=== PATIENT | female | born 1935 | race Caucasian/White ===

== ENCOUNTER 2017-04-05 22:46 | Observation (INO) | payer MEDICARE, BC ==
[2017-04-06 03:19] LABS: Hematocrit 44 % (35-47); Hemoglobin 14.6 g/dl (12.0-16.0); Mean Corpuscular HGB Conc 34 g/dl (31-36); Mean Corpuscular Hemoglobin 31 pg (27-31); Mean Corpuscular Volume 92 fL (80-97); Mean Platelet Volume 10 um3 (7.4-10.4); Red Blood Count 4.73 10^6/ul (4.0-5.4); Red Cell Distribution Width 14 % (10.5-15); White Blood Count 15.1 10^3/ul (3.5-10.8)
[2017-04-06 03:30] LABS: BUN/Creatinine Ratio 28.6 (8-20); Calcium 9.3 mg/dL (8.6-10.3); EGFR African American 83.5 (>60); EGFR Non-African American 64.9 (>60); Globulin 3.2 g/dL (2-4); Potassium 3.9 mmol/L (3.5-5.0); Total Bilirubin 0.7 mg/dL (0.2-1.0); Total Protein 7.2 g/dL (6.4-8.9)
[2017-04-06] MEDS ORDERED: Iodixanol* (CONTRAST) 320 MG/ML 100 ML SDV IV ONE (03:44)
[2017-04-06] MEDS ORDERED: Insulin ASPART (NF) 1 UNIT SUBCUT ONE (05:57)
[2017-04-06] MEDS ORDERED: Insulin LISPRO* 1 UNITS UNIT SUBCUT ONE (06:23)
[2017-04-06] MEDS ORDERED: Dextrose 50% Syringe 50 ML* 25 GM/50 ML SYRINGE IV PUSH PRN ×2 (06:23→08:41)
--- NOTE | 2017-04-06 07:57 | RAD ---
HISTORY: Trauma, left eye injury, trauma COMPARISONS: September 23, 2015 TECHNIQUE: Multiple contiguous axial CT scans were obtained of the head without intravenous contrast. FINDINGS: HEMORRHAGE/INFARCT: There is no hemorrhage or acute infarct. MASSES/SHIFT: There is no mass or shift. EXTRA-AXIAL SPACES: There are no extra-axial fluid collections. SULCI AND VENTRICLES: The sulci and ventricles are normal in size and position for the patient's stated age. CEREBRUM: There are no focal parenchymal abnormalities. BRAINSTEM: There are no focal parenchymal abnormalities. CEREBELLUM: There are no focal parenchymal abnormalities. VESSELS: The vessels are grossly normal. PARANASAL SINUSES: The paranasal sinuses are clear. ORBITS: The orbits are unremarkable. BONES AND SOFT TISSUE: There is left preorbital soft tissue swelling. OTHER: None IMPRESSION: NO ACUTE INTRACRANIAL PATHOLOGY.
--- NOTE | 2017-04-06 07:59 | RAD ---
HISTORY: Left eye injury, trauma COMPARISONS: None TECHNIQUE: Multiple contiguous axial CT scans were obtained of the face without intravenous contrast, with coronal and sagittal multiplanar reformations. FINDINGS: BONES: There is no displaced fracture or dislocation. The orbital rim is intact. The zygomatic arch is intact. The pterygoid plates are intact. ORBITS: The globes are round. The optic nerves are symmetric. The extraocular musculature is normal. There is no post septal or intraconal inflammatory change. There is no retrobulbar hematoma. There is preorbital soft tissue swelling on the left. PARANASAL SINUSES: The nasal septum is deviated to the right. There is mucosal thickening of the left maxillary sinus and of the ethmoid air cells. There is a small air-fluid level within the left maxillary sinus. BRAIN AND SOFT TISSUE: Unremarkable. OTHER: None. IMPRESSION: 1. NO FACIAL FRACTURE. 2. LEFT PREORBITAL SOFT TISSUE SWELLING. 3. MODERATE SINUS MUCOSAL INFLAMMATORY DISEASE, WITH AN AIR-FLUID LEVEL IN THE LEFT MAXILLARY SINUS. IN THE CORRECT CLINICAL SETTING, THIS MAY REPRESENT ACUTE SINUSITIS
--- NOTE | 2017-04-06 07:59 | RAD ---
INDICATION: Right hand pain COMPARISON: None TECHNIQUE: AP, lateral, and oblique views were obtained. FINDINGS: The bony structures are osteopenic. There is a fracture of the fifth metacarpal head with a mildly distracted fragment. There is a nondisplaced fracture of the base of the proximal phalanx of the fifth digit. No other fractures are evident. There is underlying interphalangeal and metacarpophalangeal osteoarthritis. IMPRESSION: FRACTURES OF THE FIFTH DIGIT DESCRIBED.
--- NOTE | 2017-04-06 08:03 | RAD ---
HISTORY: Trauma, facial trauma COMPARISONS: September 23, 2015 TECHNIQUE: Multiple contiguous axial CT scans were obtained of the cervical spine without intravenous contrast, with coronal and sagittal multiplanar reformations. FINDINGS: BRAIN: The visualized brain is unremarkable CENTRAL CANAL: Evaluation of the central canal is limited on CT technique; however, there is no obvious canalicular mass or epidural hemorrhage. ALIGNMENT: There is straightening of the cervical lordosis. VERTEBRAL BODIES: There is been interval healing of the fractures noted on the previous examination. There is multilevel anterolateral marginal osteophyte formation. There is no acute displaced fracture. JOINTS: Again noted is diffuse uncovertebral and facet osteoarthritis. There is osteoarthritis of the atlantoaxial articulation. MUSCULATURE: Unremarkable INTERVERTEBRAL DISCS: There is diffuse loss of intervertebral disc height. AXIAL IMAGES: Again noted is multilevel degenerative disc disease and osteoarthritis, as described on the previous CT examination, with mild narrowing at C4-C5, moderate narrowing at C5-C6 and C6-C7., And multilevel neural foraminal narrowing. SOFT TISSUES: The visualized soft tissues of the neck are unremarkable. The prevertebral fat stripe is preserved. OTHER: None. IMPRESSION: 1. INTERVAL HEALING OF THE CERVICAL SPINE FRACTURES NOTED ON THE PREVIOUS EXAMINATION. 2. NO ACUTE OSSEOUS INJURY TO THE CERVICAL SPINE. 3. STABLE DEGENERATIVE DISC DISEASE AND OSTEOARTHRITIS.
--- NOTE | 2017-04-06 08:12 | RAD ---
HISTORY: Trauma, chest pain, pelvic pain COMPARISONS: None TECHNIQUE: Multiple contiguous axial CT scans were obtained of the chest, abdomen, and pelvis after the administration of intravenous contrast. Coronal and sagittal multiplanar reformations are submitted for review.. Oral contrast was not administered. Delayed images were obtained through the abdomen and pelvis. FINDINGS: CHEST NECK AND THYROID: The lower neck and thyroid are unremarkable. CHEST WALL: There is no lower cervical, axillary, or supraclavicular lymphadenopathy by size criteria. HEART AND PERICARDIUM: The heart is unremarkable. AORTA AND PULMONARY VASCULATURE: The aorta and pulmonary vasculature are normal. MEDIASTINUM: There is no mediastinal lymphadenopathy by size criteria. KHADIJAH: There is no hilar lymphadenopathy by size criteria. AIRWAY AND ESOPHAGUS: The airway is unremarkable, without endobronchial filling defect. The esophagus is grossly normal. LUNG PARENCHYMA: The lungs are clear. PLEURA: No pleural abnormalities are noted. BONES AND SOFT TISSUES: Degenerative changes are noted along the spine. There is remote posttraumatic deformity to the left hemithorax. There are nondisplaced fractures of the right sixth and seventh ribs anteriorly. ABDOMEN/PELVIS: LIVER: The liver is normal in shape, size, contour, and attenuation. BILE DUCTS: There is no intrahepatic or extrahepatic biliary dilatation. GALLBLADDER: Gallstones are noted. There is diffuse gallbladder wall thickening. PANCREAS: The pancreas is normal, without mass or ductal dilatation. SPLEEN: Normal in size and appearance. UPPER GI TRACT: Evaluation of the gastrointestinal tract is limited by incomplete gastric distention. The upper GI tract is unremarkable. SMALL BOWEL & MESENTERY: The small bowel is normal in contour, course, and caliber. There is no obstruction or dilatation. COLON: The colon is normal in contour, course, caliber. There is no pericolonic inflammatory change. ADRENALS: Normal bilaterally. KIDNEYS: The kidneys are normal in shape, size, contour, and axis. There is no hydronephrosis or nephrolithiasis. BLADDER: The bladder is smooth in contour. PELVIC ORGANS: The uterus and adnexa are grossly normal for technique. AORTA: There is calcific atherosclerotic disease of the abdominal aorta and its branches, without aneurysmal dilatation IVC: Unremarkable LYMPH NODES: There is no lymphadenopathy by size criteria. ABDOMINAL WALL: There is no evidence for abdominal wall hernia. BONES AND SOFT TISSUES: Degenerative changes are noted of the spine, most pronounced at L2-L3, L3-L4, and L4-L5 with disc protrusions noted at L3-L4 and L4-L5.. There is an age-indeterminate compression deformity of T12 and L2 with minimal osseous retropulsion. OTHER: None IMPRESSION: 1. NO DISPLACED FRACTURES OF THE RIGHT SIXTH AND SEVENTH RIBS ANTERIORLY WITHOUT PNEUMOTHORAX. 2. CHOLELITHIASIS WITH GALLBLADDER WALL THICKENING. 3. AGE-INDETERMINATE COMPRESSION DEFORMITIES OF T12 AND L2. 4. ATHEROSCLEROSIS. 5. DEGENERATIVE DISC DISEASE AND OSTEOARTHRITIS MOST PRONOUNCED ALONG THE LOWER LUMBAR SPINE
[2017-04-06] MEDS ORDERED: Al Hydrox/Mg Hydrox/Simet LIQ* 30 ML UDC PO PRN (08:39)
[2017-04-06] MEDS ORDERED: oxyCODONE/Acetamin 5/325 MG* TAB PO PRN (08:39)
[2017-04-06] MEDS ORDERED: Acetaminophen TAB* 325 MG PO PRN (08:39)
[2017-04-06] MEDS ORDERED: Albuterol 2.5 MG/3 ML NEB.SOL* (0.083%) INH PRN (08:39)
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
[2017-04-06] MEDS: Docusate CAP* 100 MG PO SCH ×2 (09:24→21:43)
[2017-04-06] MEDS: Aspirin EC Low Dose* 81 MG TAB.EC PO SCH (09:25)
[2017-04-06] MEDS: Atorvastatin* 40 MG TAB PO SCH (09:25)
[2017-04-06] MEDS: amLODIPine TAB* 5 MG PO SCH (09:25)
[2017-04-06] MEDS: Doxazosin TAB* 2 MG PO SCH (09:26)
--- NOTE | 2017-04-06 11:04 | HP ---
ADDENDUM NOW INCLUDED ON THIS REPORT CC: Dr. Mendez * HISTORY AND PHYSICAL: DATE OF ADMISSION: 04/06/17 PRIMARY CARE PROVIDER: Dr. Mendez. CHIEF COMPLAINT: Status post fall, eye edema, and ecchymosis. HISTORY OF PRESENT ILLNESS: Isis Macdonald is an 82-year-old female with history of diabetes, hypertension and dyslipidemia, who was on her way out of a grocery store when she tripped and fell. She hit left side of her head, left hand, as well as right chest. She stated that she did not lose consciousness and the cause of the fall was purely mechanical. She denies losing consciousness. After the episode, she denies any prodromal symptoms that would suggest syncope. The patient was evaluated in the emergency department for several hours and was noted to have poor pain control and poor respiratory effort. She is going to be placed on overnight observation with diagnosis of rib fractures and fall. PAST MEDICAL HISTORY: 1. History of femur fracture after a fall in 2012, status post ORIF. 2. History of insulin dependent diabetes. 3. History of hypothyroidism. 4. Dyslipidemia. 5. Obesity. 6. Hypertension. MEDICATIONS: At home include: 1. Insulin, NovoLog sliding scale with counting carbs. 2. Aspirin 81 mg daily. 3. Lantus insulin 32 units q.p.m. 4. Lipitor 40 mg daily. 5. Cardura 4 mg daily. 6. Amlodipine 10 mg daily. 7. Levothyroxine 175 mcg daily. 8. Hydrochlorothiazide 25 mg daily. FAMILY HISTORY: Positive for father with heart attack at the age of 41 and diabetes. SOCIAL HISTORY: The patient lives alone. She denies any tobacco, alcohol or drug use. She is fully independent and she ambulates without any help, although she does have canes and she does have a walker at home due to her history of having a femur fracture in 2013. She stated that her healthcare proxy is her daughter, Balbina, from [place], but she requested for me not to call her. REVIEW OF SYSTEMS: Please see history of present illness. The patient stated that she had cold symptoms approximately a week ago, those resolved. They include nasal congestion and some cough. Currently, the patient complains of right-sided rib pain and left eye ecchymosis and left hand ecchymosis. All the remaining 12 systems were reviewed with the patient and were otherwise negative. PHYSICAL EXAMINATION GENERAL: The patient is a very pleasant 82-year-old female who is in no acute distress. Alert and awake and oriented x3. VITAL SIGNS: Blood pressure of 128/67, heart rate of 99 and regular, respiratory rate 22, oxygen saturation 94% on 2 L of oxygen nasal cannula, temperature of 96.1. HEENT: Head with large ecchymotic area over the left eye. Eyes: Extraocular muscles are intact. Pupils are equal, reactive to light and accommodation. Oropharynx clear. Mucosa moist. NECK: Supple. No JVD. No bruits bilaterally. RESPIRATORY: Crackles at right lung base, otherwise clear. CARDIOVASCULAR: Regular rate and rhythm. No murmur. ABDOMEN: Soft, nontender. Bowel sounds are present in all 4 quadrants. EXTREMITIES: There is left hand edema with ecchymosis overlying the lateral part of the patient's hand including the 5th digit and dorsal area of the lateral hand. SKIN: On evaluation of the skin, ecchymosis on the left hand and left eye as mentioned. Otherwise, no other lesions noted. NEURO EVALUATION: Speech clear. Cranial nerves II through XII grossly intact. Motor strength is 5/5 bilaterally. LABORATORY DATA: Show white blood cell count of 15.1, hemoglobin of 14.6, hematocrit of 44, and platelets of 260,000. Sodium was 133, potassium 3.9, chloride 100, carbon dioxide 25, BUN 24, creatinine 0.84. Liver function tests were unremarkable. Sugar on presentation at 2 a.m. was 307. C-spine CT obtained prior to admission showed impression: "Interval healing of cervical spine fractures noted on the previous examination in 2016. No acute osseous injury to the cervical spine. Stable degenerative disk disease and osteoarthritis." Chest, abdomen and pelvis CT, impression: "Nondisplaced fractures of the right 6th and 7th rib anteriorly without pneumothorax, questionable fracture of the 4th rib. Cholelithiasis with gallbladder wall thickening. Age indeterminate compression deformities of T12 and L2. Atherosclerosis. Degenerative disk disease and osteoarthritis, most pronounced along the lower lumbar spine." Hand x-ray of the left showed 5th metacarpal head fracture with mildly displaced fragment. There is also nondisplaced fracture of the base of the proximal phalanx of the 5th digit. Maxillofacial CT, impression: "No facial fracture. Left periorbital soft tissue swelling. Moderate sinus mucosal inflammatory disease with an air fluid level in the left maxillary sinus. In the correct clinical setting, this may represent acute sinusitis." Brain CT, impression: "No acute intracranial pathology." ASSESSMENT AND PLAN: 1. An 82-year-old female with status post mechanical fall with left hand fractures and right-sided rib fractures that appears like 2 or 3 ribs involved. At this point, the patient actually drove herself to the emergency department and the only concern was swelling of the left eye. She does complain of pleuritic chest pain due to the rib fractures and she is currently on oxygen with oxygen saturation at 94%. I am going to place her on overnight observation with pain management with Percocet and Tylenol. We are going to place incentive spirometry. I will ask Physical Therapy and Occupational Therapy to see the patient in evaluation. The patient lives alone in a trailer as she does not have any family living around. She stated that she does have a friend with whom she could stay for a few days if she needed to. She is also interested in possibility of short-term rehabilitation and that would include our physiotherapy unit or short-term rehabilitation at the custodial if that were to be needed. 2. In regards to the patient's diabetes, the patient is going to be placed on insulin sliding scale as well as Lantus at a lower dose of 20 units daily. 3. For her hypertension, her hydrochlorothiazide is going to be held. Her remaining medications are going to be continued. 4. For her hypothyroidism, Synthroid is going to be continued. 5. For dyslipidemia, Lipitor is going to be continued. 6. For DVT prophylaxis, the patient is going to be placed on heparin subcutaneously. 7. The patient's code status is full and her healthcare proxy is her daughter, Balbina, from [place]. TIME SPENT: Approximately 62 minutes was spent on the admission of this patient , more than half that time was spent [id number] with the patient during the interview and physical exam. ADDENDUM: Please note that for the patient's left hand fracture, which includes left metacarpal fracture and fifth digit fracture, the patient is going to be placed in a splint by Dr. Pearce in the emergency department. For followup, Dr. Pearce recommended for the patient to see an orthopedic surgeon in approximately a week and to continue to use the splint until seen by orthopedic surgeon. The patient is to cover the splint with a plastic bag for showering. [id number]/CPS #: [id number] #: [id number]
[2017-04-06] MEDS: Levothyroxine TAB* 175 MCG TAB PO SCH (12:17)
[2017-04-06] MEDS: Insulin LISPRO* 1 UNITS UNIT SUBCUT SCH ×3 (12:18→21:42)
[2017-04-06] MEDS: Heparin VIAL(*) 5000 UNITS/ML VIAL (FIVE THOUSAND) SUBCUT SCH ×2 (14:37→21:41)
--- NOTE | 2017-04-06 14:59 | HP ---
HISTORY AND PHYSICAL: * ADDENDUM: Please note that for the patient's left hand fracture, which includes left metacarpal fracture and fifth digit fracture, the patient is going to be placed in a splint by Dr. Pearce in the emergency department. For followup, Dr. Pearce recommended for the patient to see an orthopedic surgeon in approximately a week and to continue to use the splint until seen by orthopedic surgeon. The patient is to cover the splint with a plastic bag for showering. [id number]/[facility] #: [id number] [facility]ITAL[facility]
[2017-04-06] MEDS ORDERED: GuaiFENesin DM sugar free* 5 ML UDC PO PRN (16:34)
[2017-04-06] MEDS ORDERED: Insulin GLARGINE(*) 1 UNITS UNIT SUBCUT SCH (21:00)
[2017-04-07] MEDS: Heparin VIAL(*) 5000 UNITS/ML VIAL (FIVE THOUSAND) SUBCUT SCH ×2 (05:46→13:44)
[2017-04-07] MEDS: Levothyroxine TAB* 175 MCG TAB PO SCH (05:46)
[2017-04-07 06:46] LABS: Hematocrit 41 % (35-47); Hemoglobin 13.6 g/dl (12.0-16.0); Mean Corpuscular HGB Conc 33 g/dl (31-36); Mean Corpuscular Hemoglobin 31 pg (27-31); Mean Corpuscular Volume 93 fL (80-97); Mean Platelet Volume 10 um3 (7.4-10.4); Red Blood Count 4.41 10^6/ul (4.0-5.4); Red Cell Distribution Width 14 % (10.5-15)
[2017-04-07 07:02] LABS: BUN/Creatinine Ratio 19.1 (8-20); EGFR African American 73.3 (>60); Potassium 3.8 mmol/L (3.5-5.0)
[2017-04-07] MEDS: Insulin LISPRO* 1 UNITS UNIT SUBCUT SCH ×2 (08:44→12:19)
[2017-04-07] MEDS: Doxazosin TAB* 2 MG PO SCH (09:17)
[2017-04-07] MEDS: Aspirin EC Low Dose* 81 MG TAB.EC PO SCH (09:17)
[2017-04-07] MEDS: Docusate CAP* 100 MG PO SCH (09:17)
[2017-04-07] MEDS: Atorvastatin* 40 MG TAB PO SCH (09:18)
[2017-04-07] MEDS: amLODIPine TAB* 5 MG PO SCH (09:18)
--- NOTE | 2017-04-07 13:57 | PN ---
Progress Note - Progress Note Date of Service: 04/07/17 SOAP: Subjective: 82 y/o woman admitted after fall with multiple contusions, fractures. Ortho called by hospitalist group for evaluation of L hand plint placed by ER doctor for concern of swelling. Patient states has discomfort in hand with lying arm down for several minutes, noted some swelling however not bothersome and she feels expected. Daughter in room with patient, does not express concerns about hand. Objective: General Alert, pleasant, answers questions appropriately MSK- Left hand with gutter splint in place, michell wrap does not appear too tight , 1-3 fingers exposure, cap refill <2 seconds each finger, SITLT in all fingers , full ROM of fingers actively without complaint. ROM L elbow limited to IV in antecub, however appears full, no tenderness over elbow. rad, ulnar pulses 2+. mild edema in fingers, non-pitting. slight ecchymosis seen. Assessment: L 5ht displaced MCP fx with nondisplaced Metacarpal fracture placed in gutter splint Plan: - Splint appears to be functioning well and does not appear too tight. Continue to wear splint, sling ordered for comfort to decrease swelling, RICE. Will follow up with ortho within 5-7 days as inpatient if still in hospital or as outpatient.
[2017-04-07 15:15] VITALS: BP 139/69
--- NOTE | 2017-04-08 05:24 | DS ---
CC: Dr. Mendez; Dr. Dean Weiss from Orthopedic Surgery * DISCHARGE SUMMARY: DATE OF ADMISSION: 04/06/17 DATE OF DISCHARGE: 04/07/17 PRIMARY CARE PROVIDER: Dr. Mendez. DISCHARGE DIAGNOSES: 1. Status post fall with at least 2 right-sided rib fractures. 2. Status post left fifth digit fracture. SECONDARY DIAGNOSES: 1. History of open reduction internal fixation of femur in 2012. 2. Diabetes, insulin dependent. 3. Hypothyroidism. 4. Dyslipidemia, on simvastatin. 5. Hypertension. MEDICATIONS AT HOME: Include: 1. Insulin NovoLog sliding scale with counting carbs. 2. Aspirin 81 mg daily. 3. Lantus insulin 32 units q.p.m. 4. Lipitor 40 mg daily. 5. Cardura 4 mg daily. 6. Amlodipine 10 mg daily. 7. Levothyroxine 175 mcg daily. 8. Hydrochlorothiazide 25 mg daily. HOSPITALIZATION COURSE: Isis Macdonald is an 82-year-old female who had a mechanical fall when coming out of grocery store. She suffered from contusion of the left side of her head in the eye area as well as fracture of right sixth and seventh rib and questionable fracture of the fourth rib. Patient also suffered from fracture of the left metacarpal bone and left proximal fifth digit that was splinted in the emergency department. In regards to patient's left hand fracture, the patient was evaluated by Dr. Weiss from Orthopedic Surgery. The splint was checked and patient was recommended to follow up with the orthopedic surgeon in approximately 1 week. In regards to patient's right-sided rib fracture, she did very well on incentive spirometry. She was not hypoxemic and did not require narcotic pain control at discharge. The patient was observed on overnight observation. Physical Therapy/ Occupational Therapy saw the patient in evaluation and deemed patient okay to be discharged home. Patient's daughter arrived from [place] and is taking the patient home today. PHYSICAL EXAM AT THE TIME OF DISCHARGE: Unchanged from admission. [id number]/[facility] #: [id number] [facility]
== END 2017-04-07 15:55 | disposition home or self-care (01) ==
LOC: ED 22:46 → MEDTELE 04-06 08:39
PROVIDERS: ADMIT Internal Medicine; ATTEND Internal Medicine
DX: S22.41XA Multiple fractures of ribs, right side, initial encounter for closed fracture (principal); S62.397A Other fracture of fifth metacarpal bone, left hand, initial encounter for closed fracture; W01.0XXA Fall on same level from slipping, tripping and stumbling without subsequent striking against object, initial encounter; Y92.512 Supermarket, store or market as the place of occurrence of the external cause; E11.9 Type 2 diabetes mellitus without complications; Z79.4 Long term (current) use of insulin; I10 Essential (primary) hypertension; E66.9 Obesity, unspecified; Z79.899 Other long term (current) drug therapy; Z79.82 Long term (current) use of aspirin; Z88.1 Allergy status to other antibiotic agents; Z88.0 Allergy status to penicillin; Z88.8 Allergy status to other drugs, medicaments and biological substances; E78.00 Pure hypercholesterolemia, unspecified; Z87.891 Personal history of nicotine dependence; K80.20 Calculus of gallbladder without cholecystitis without obstruction; I70.90 Unspecified atherosclerosis
CPT/HCPCS: 36415; 70450; 70486; 71260; 72125; 74177; 80048; 80053; 85025; 85610; 96372; 99283; A9270-GY; G0378; G8978-GP-CH; G8979-GP-CH; G8980-GP-CH; G8987-GO-CJ; G8988-GO-CH; J1644; Q9967